=== PATIENT | male | born 1955 | race Caucasian/White ===

== ENCOUNTER 2020-11-27 18:03 | Emergency (ER) | payer MEDICARE, OTHER ==
[~2020-11-27] VITALS: Ht 167.6 cm; Wt 65.9 kg
[2020-11-27 18:05] VITALS: BP 152/84
== END 2020-11-27 18:50 | disposition home or self-care (01) ==
LOC: EMS 18:03
DX: R05 Cough (principal); I10 Essential (primary) hypertension; F17.210 Nicotine dependence, cigarettes, uncomplicated; F19.90 Other psychoactive substance use, unspecified, uncomplicated; Z20.822 Contact with and (suspected) exposure to COVID-19
CPT/HCPCS: 99283; U0003

== ENCOUNTER 2021-07-02 20:00 | Emergency (ER) | payer MEDICARE, OTHER ==
[~2021-07-02] VITALS: Ht 170.2 cm; Wt 72.7 kg
[2021-07-02 20:30] VITALS: BP 139/79
== END 2021-07-02 20:50 | disposition home or self-care (01) ==
LOC: EMS 20:03
DX: R50.9 Fever, unspecified (principal); I10 Essential (primary) hypertension; F17.210 Nicotine dependence, cigarettes, uncomplicated; Z20.822 Contact with and (suspected) exposure to COVID-19
CPT/HCPCS: 99283; U0003

== ENCOUNTER 2022-10-11 14:09 | Emergency (ER) | payer MEDICARE, OTHER ==
[~2022-10-11] VITALS: Ht 170.2 cm; Wt 63.6 kg
[2022-10-11] MEDS ORDERED: SULFAMETHOX/TRIMETH DS 800-160 MG/TABLET PO ONE (16:45)
[2022-10-11] MEDS ORDERED: PERTUSS(ACELL),DIPH,TET VAC/PF 0.5 ML SYRINGE IM. ONE (16:45)
[2022-10-11 18:31] VITALS: BP 144/78
== END 2022-10-11 18:37 | disposition home or self-care (01) ==
LOC: EMS 17:31
DX: S61.032A Puncture wound without foreign body of left thumb without damage to nail, initial encounter (principal); F10.20 Alcohol dependence, uncomplicated; F17.210 Nicotine dependence, cigarettes, uncomplicated; J45.909 Unspecified asthma, uncomplicated; I10 Essential (primary) hypertension; W34.09XA Accidental discharge from other specified firearms, initial encounter; Y93.89 Activity, other specified; Y92.89 Other specified places as the place of occurrence of the external cause; Y99.8 Other external cause status
CPT/HCPCS: 90471; 90715; 99283

== ENCOUNTER 2025-07-14 13:12 | Emergency (ER) | payer MEDICARE, OTHER ==
[~2025-07-14] VITALS: Ht 172.7 cm; Wt 68.0 kg
[2025-07-14 13:28] VITALS: TEMP 98.4
[2025-07-14 13:44] LABS: COVID AG,FIA SOURCE NASAL SWAB
[2025-07-14 14:06] LABS: INFLUENZA TYPE A NEGATIVE FOR TYPE A (NEGATIVE); INFLUENZA TYPE B NEGATIVE FOR TYPE B (NEGATIVE)
[2025-07-14] MEDS: IBUPROFEN 400 MG TABLET PO ONE (14:11)
[2025-07-14 14:18] LABS: PLATELET COUNT (AUTO) 169 K/uL (150-450); RED BLOOD CELL COUNT(AUTO) 4.74 MIL/uL (4.50-5.90); RED CELL DISTRIBUTION WIDTH 13.5 % (11.5-14.5); WHITE BLOOD COUNT (AUTO) 5.7 K/uL (4.5-11.0)
[2025-07-14 14:23] LABS: SARS-COV2 (COVID) ANTIGEN,FIA Positive (Negative)
[2025-07-14 14:44] LABS: CALCIUM, TOTAL 8.0 mg/dL (8.8-10.5); CREATININE 0.89 mg/dL (0.60-1.30); GLOMERULAR FILTR. RATE CALC > 60 mL/min (>60); GLUCOSE,RANDOM 104 mg/dL (70-110); SODIUM SERUM 132 mmol/L (136-145); UREA NITROGEN, BLOOD 13 mg/dL (7-18)
[2025-07-14 15:00] VITALS: BP 135/80; PULSE 85; RESP 16; O2SAT 98
== END 2025-07-14 15:16 | disposition home or self-care (01) ==
LOC: EMS 13:16
DX: U07.1 COVID-19 (principal); I10 Essential (primary) hypertension; J45.909 Unspecified asthma, uncomplicated; R53.1 Weakness; R05.9 Cough, unspecified; R42 Dizziness and giddiness; F17.210 Nicotine dependence, cigarettes, uncomplicated
CPT/HCPCS: 80048; 85025; 87804; 99283